=== PATIENT | male | born 1985 | race Caucasian/White ===

== ENCOUNTER 2024-03-23 09:13 | Emergency (ER) | payer SELFPAY ==
[2024-03-23 09:29] VITALS: BP 111/75
[2024-03-23] MEDS: DELTASONE 50 MG PO (10:08)
[2024-03-23] MEDS: NORCO 5/325 2 TABLET PO (10:08)
[2024-03-23] MEDS: TORADOL 60 MG IM (10:08)
--- NOTE | 2024-03-23 10:13 | EDRN ---
Pain 9/10 prior to nuclear medicine pet ct technologist.
--- NOTE | 2024-03-23 10:17 | ED.GENMED ---
History of Present Illness
General
Chief Complaint: Back Pain
Source: patient and family
Exam Limitations: none
Time Seen by Provider: 03/23/24 09:39
History of Present Illness
History of Present Illness:
38-year-old male with history of GERD who presents after he injured his back on Sunday at work. He states he was pulling a sign on the grass that had fence ties in the ground. Patient states he felt he tweaked his back but it felt okay. He woke
up the next day with worse pain but now the pain has escalated. It radiates from his mid back in his lower thoracic area out around the sides of his back bilaterally. Denies motor weakness. No urinary or bowel incontinence. No chest pain.
Past History
Past History
ED Past Medical History: GERD
Phy Exam
Physical Exam
Physical Exam:
CONSTITUTIONAL Vital signs reviewed, Patient alert and oriented to person, place and time. Well-appearing
HEAD atraumatic, normocephalic.
EYES eyelids normal to inspection, Extraocular muscles intact, Conjunctiva normal, Sclera normal.
NECK normal range of motion, Trachea midline, no jugular venous distention.
RESP no respiratory distress
BACK No obvious deformities, no tenderness, no midline tenderness, no muscle spasm
UPPER EXTREMITY Gross Range of motion normal, gross motor strength normal
LOWER EXTREMITY Gross range of motion normal, Gross motor strength normal
NEURO Speech normal, No focal motor deficits include, David coma scale 15, Memory normal, Cranial Nerves intact to screening exam.
SKIN Skin warm, dry, and normal in color.
PSYCHIATRIC Patient oriented to person place and time, Normal affect.
Course
Orders/Labs/Results
Orders:
Orders
03/23/24 10:03
Hydrocodone 5/APAP 325 [[place] 5/325] 2 tablet PO NOW STA
03/23/24 10:04
Ketorolac [Toradol] 60 mg IM NOW STA
Prednisone [Deltasone] 50 mg PO NOW STA
Vital Signs
Initial and Last Documented VS:
Initial Vital Signs
Temp Pulse Resp BP Pulse Ox
98.0 F 76 16 111/75 95
03/23/24 09:03/23/24 09:03/23/24 09:03/23/24 09:03/23/24 09:29
Last Documented Vital Signs
Temp Pulse Resp BP Pulse Ox
98.0 F 76 16 111/75 95
03/23/24 09:29 03/23/24 09:29 03/23/24 09:03/23/24 09:03/23/24 09:29
MDM/Problems Addressed
MDM/Problems Addressed:
Suspect thoracic herniated disc, back pain
*Pulse Oximetry
Patient hypoxic: no
*Critical Care Note
Total Time (30-74mins, 75-104mins- exclusive of procedures): Not Applicable
Data Reviewed
Source: patient and family
Further Testing Considered But Not Given:
Considered x-rays but no fall or concern for fracture
Patient Management
Escalation/DeEscalation of care consider admission/obs:
No focal neurologic deficits. Suspect herniated disc in the thoracic area. Treat with steroids, pain control and outpatient follow-up. Advised to rest and avoid flexion in that area.
ED Attending Note
-
Portions of this chart may have been created with voice recognition software.� Occasional wrong word or��sound alike� substitutions may have occurred due to the inherent limitations of voice recognition software.
Discharge Plan
Departure
Patient Disposition: Home (Routine Discharge)
Date of Disposition: 03/23/24
Time of Disposition: 10:21
Patient with high blood pressure during this ER visit?: No
Discharge Problem:
Back pain
Instructions: Upper Back Pain (DC)
Prescriptions:
New
hydrocodone-acetaminophen 5-325 mg tablet
2 tab PO Q6H PRN (Reason: Pain) Qty: 20 0RF
pantoprazole [Protonix] 40 mg tablet,delayed release (DR/EC)
40 mg PO DAILY Qty: 30 0RF
Rx Instructions:
Please take 30 minutes prior to eating or drinking anything in the morning.
prednisone 10 mg Tablet
See Rx Instructions .ROUTE .COMPLEX Qty: 45 0RF
Rx Instructions:
Take By Mouth:
50 mg daily x3 days, 40 mg daily x3 days,
30 mg daily x3 days, 20 mg daily x3 days,
10 mg daily x3 days
Referrals:
Adina Rothman DO [Family Provider] -
Activity Restrictions/Additional Instructions:
Please rest. Please use ibuprofen every 6 hours as discussed. Please avoid flexion of the upper back as much as possible. Please see your doctor in the next 1 week for follow-up and reevaluation. If symptoms persist, an MRI may be necessary.
Return immediately for lower extremity weakness, bowel or bladder incontinence, fevers, worsening or intractable pain or any other concerns.
Interventions
Interventions:
*Risk Screen - Suicide Last Done: 03/23/24 09:29
*General Assessment Last Done: 03/23/24 09:29
*ED COVID-19 Vaccine History Last Done: 03/23/24 09:29
ED-Musculoskeletal Assessment Last Done: 03/23/24 09:50
Discharge Date and Time
Print Language: CZECH
== END 2024-03-23 11:04 | disposition home or self-care (01) ==
LOC: EMR 09:13
PROVIDERS: EMERGENCY PHYSICIAN Emergency Medicine; FAMILY PHYSICIAN Family Medicine
DX: M54.9 Dorsalgia, unspecified (principal); K21.9 Gastro-esophageal reflux disease without esophagitis
CPT/HCPCS: 99284; 96372

== ENCOUNTER → 2024-04-30 16:55 | Outpatient (REF) | payer OTHER, SELFPAY | LOC: RAD 16:55 | PROVIDERS: ATTENDING PHYSICIAN Nurse Practitioner Family; FAMILY PHYSICIAN Family Medicine | DX: M54.9 Dorsalgia, unspecified (principal) | CPT/HCPCS: 72072 ==